=== PATIENT | female | born 1935 | race Caucasian/White ===

== ENCOUNTER 2016-12-13 02:42 | Inpatient (IN) | payer OTHER, BC ==
--- NOTE | 2016-12-13 02:52 | PDOC ---
History of Present Illness - General Chief Complaint: Pain, Acute Stated Complaint: MISSED A STEP INJURING HER RIGHT HIP AND THIGH Time Seen by Provider: 12/13/16 02:51 History Source: Patient Exam Limitations: No Limitations - History of Present Illness Initial Comments: 12/13/16 02:56 This is an elderly 81-year-old female who was going down 2 steps we supinated to stop following injuring her right hip and hitting her head. Patient did not pass out. Patient's complaining of pain to her right hip area. Patient was able to ambulate post fall. Patient was brought in by EMS. PAST MEDICAL HISTORY: no significant history PAST SURGICAL HISTORY: no significant history FAMILY HISTORY: no pertinant history SOCIAL HISTORY: Pt lives with family and is employed. MEDICATIONS: reviewed ALLERGIES: As per nursing notes Review of Systems General: No fevers or chills, no weakness, no weight loss HEENT: No change in vision. No sore throat,. No ear pain CardioVascular: No chest pain or shortness of breath Respiratory:No cough, or wheezing. Gastrointestinal: no nausea, vomitting, diarrhea or constipation, No rectal bleeding Genitourinary: No dysuria, hematuria, or frequency Musculoskeletal: Pain in right hip Neurologic: No headache, vertigo, dizziness or loss of consciousness Psychiatric: nor depression Skin: No rashes or easy bruising Endocrine: no increased thirst or abnormal weight change Allergic: no skin or latex allergy All other systems reviewed and normal Exam: General: Well-nourished well-developed individual, no acute distress HEENT: Throat: Normal, tonsils normal, no erythema or exudate Neck: Supple, no meningeal signs, no lymphadenopathy Eyes::Pupils equal reactive and round, extraocular motion intact Chest: Nontender to palpation Cardiac: S1-S2 normal, regular rate and rhythm, no murmurs rubs or gallops Respiratory: Lungs clear to auscultation bilateral Abdomen: Soft, nondistended, normal bowel sounds, nontender to palpation diffusely Extremities: Warm, dry, no cyanosis, clubbing, or edema, the right leg is externally rotated and shortened. Neurovascular distal is intact. There is tenderness on palpation over the right hip Skin: No rashes Neuro: Alert and oriented x3, nonfocal exam, grossly intact, normal gait Psych: Normal mood and affect 12/13/16 04:12 X-ray shows a fracture of the right femur through the hardware that is already there. Chest x-ray no acute pathology Assessment and plan: This is an 81-year-old female who comes in status post fall who has a fracture through her hardware that is already in her right femur. 12/13/16 04:14 Past History - Past Medical History Allergies/Adverse Reactions: Allergies Allergy/AdvReac Type Severity Reaction Status Date / Time No Known Allergies Allergy Verified 12/13/16 02:44 Home Medications: Ambulatory Orders Unobtainable [Unobtainable] 12/13/16 HTN: Yes - Immunization History Td Vaccination: Yes Immunization Up to Date: (UNSURE) - Psycho/Social/Smoking Cessation Hx Suicidal Ideation: No Smoking Status: Yes Smoking History: Former smoker Have you smoked in the past 12 months: No Number of Cigarettes Smoked Daily: 0 Hx Alcohol Use: No Drug/Substance Use Hx: No Substance Use Type: None ED Treatment Course - LABORATORY CBC & Chemistry Diagram: 12/13/16 03:00 12/13/16 03:00 *DC/Admit/Observation/Transfer Diagnosis at time of Disposition: Right femoral shaft fracture Qualifiers: Encounter type: initial encounter Fracture type: closed Fracture morphology: unspecified fracture morphology Qualified Code(s): S72.301A - Unspecified fracture of shaft of right femur, initial encounter for closed fracture - Discharge Dispostion Condition at time of disposition: Stable Admit: Yes - Referrals Referrals: Ankit Toth MD [Primary Care Provider] -
[2016-12-13] MEDS ORDERED: morphine CARPU-JECT 2 MG/1 ML DISP.SYRIN IVPUSH ONE ×2 (02:54→04:01)
[2016-12-13 02:58] VITALS: BMI 21.9
[2016-12-13] MEDS ORDERED: morphine CARPU-JECT 2 MG/1 ML DISP.SYRIN ONE ×2 (03:11→03:55)
[2016-12-13 03:52] LABS: BASOPHIL 0.5 % (0-2.0); EOSINOPHIL 1.3 % (0-4.5); MCH 35.4 pg (25.7-33.7); MCHC 33.7 g/dl (32.0-36.0); MEAN PLT VOLUME 7.6 fl (7.5-11.1); NEUTROPHILS 77.2 % (42.8-82.8); PLATELET COUNT 167 K/MM3 (134-434); RDW 13.4 % (11.6-15.6); WHITE BLOOD COUNT 6.9 K/mm3 (4.0-10.0)
[2016-12-13 04:00] LABS: INR 1.03 (0.82-1.09); PROTHROMBIN TIME (PATIENT) 11.3 SEC (9.98-11.88)
[2016-12-13 04:15] LABS: ALBUMIN 3.5 g/dl (3.4-5.0); ALK PHOS 108 U/L (45-117); ANION GAP 14 (8-16); BILIRUBIN,TOTAL 0.6 mg/dL (0.2-1.0); CALCIUM 9.2 mg/dL (8.5-10.1); CO2 26 mmol/L (21-32); CREATININE 0.9 mg/dL (0.55-1.02); GLUCOSE,RANDOM 97 mg/dL (74-106); SGOT/AST 59 U/L (15-37); SGPT/ALT 52 U/L (12-78); TOT PROT 6.5 g/dl (6.4-8.2)
[2016-12-13] MEDS: SODIUM CHLORIDE 1,000 ML IV SCH (05:00)
[2016-12-13 08:36] LABS: ACTIVATED PTT 24.6 SECONDS (24.0-38.9); INR 0.99 (0.82-1.09); PROTHROMBIN TIME (PATIENT) 11.1 SEC (10.2-13.0)
--- NOTE | 2016-12-13 10:02 | HP ---
CHIEF COMPLAINT: s/p fall, right hip pain PCP: Dr Toth HISTORY OF PRESENT ILLNESS: Patient is a 81 y/o female with a past medical history of hemocromotosis. She reports ambulating at home this morning, missed a step and fell upon her right hip and striking her head. Patient denies any loss of consciousness, She is able to recall the full incident in detail. She reports ongoing pain to the right anterior thigh and denies any paresthesia to the extremity. ER course was notable for: (1) xray of right pelvis acute communted fracture of the right greater trochanter, fracture lucency is extending horizontally through the lateral subtrochantic region up the hardware (2) ct of head, no acute pathology (3)ekg nsr normal axis Recent Travel: none PAST MEDICAL HISTORY: hemocromotosis PAST SURGICAL HISTORY: bilateral hip replacements Social History: retired, resides at home with her Smoking:dayliner smoker Alcohol: none Drugs: none Family History: non contributory to this admission Allergies No Known Allergies Allergy (Verified 12/13/16 02:44) HOME MEDICATIONS: Home Medications Medication Instructions Recorded Unobtainable [Unobtainable] 12/13/16 REVIEW OF SYSTEMS CONSTITUTIONAL: Absent: fever, chills, diaphoresis, generalized weakness, malaise, loss of appetite, weight change HEENT: Absent: rhinorrhea, nasal congestion, throat pain, throat swelling, difficulty swallowing, mouth swelling, ear pain, eye pain, visual changes CARDIOVASCULAR: Absent: chest pain, syncope, palpitations, irregular heart rate, lightheadedness , peripheral edema RESPIRATORY: Absent: cough, shortness of breath, dyspnea with exertion, orthopnea, wheezing, stridor, hemoptysis GASTROINTESTINAL: Absent: abdominal pain, abdominal distension, nausea, vomiting, diarrhea, constipation, melena, hematochezia GENITOURINARY: Absent: dysuria, frequency, urgency, hesitancy, hematuria, flank pain, genital pain MUSCULOSKELETAL: Present: right hip pain Absent: myalgia, arthralgia, joint swelling, back pain, neck pain SKIN: Absent: rash, itching, pallor HEMATOLOGIC/IMMUNOLOGIC: Absent: easy bleeding, easy bruising, lymphadenopathy, frequent infections ENDOCRINE: Absent: unexplained weight gain, unexplained weight loss, heat intolerance, cold intolerance NEUROLOGIC: Absent: headache, focal weakness or paresthesias, dizziness, unsteady gait, seizure, mental status changes, bladder or bowel incontinence PSYCHIATRIC: Absent: anxiety, depression, suicidal or homicidal ideation, hallucinations. PHYSICAL EXAMINATION Vital Signs - 24 hr 12/13/16 06:56 O2 Sat by Pulse 96 Oximetry (%) GENERAL: Awake, alert, and fully oriented, in no acute distress. HEAD: Normal with no signs of trauma. EYES: Pupils equal, round and reactive to light, extraocular movements intact, sclera anicteric, conjunctiva clear. No lid lag. EARS, NOSE, THROAT: Ears normal, nares patent, oropharynx clear without exudates. Moist mucous membranes. NECK: Normal range of motion, supple without lymphadenopathy, JVD, or masses. LUNGS: Breath sounds equal, clear to auscultation bilaterally. No wheezes, and no crackles. No accessory muscle use. HEART: Regular rate and rhythm, normal S1 and S2 without murmur, rub or gallop. ABDOMEN: Soft, nontender, not distended, normoactive bowel sounds, no guarding, no rebound, no masses. No hepatomegaly or splenomegaly. MUSCULOSKELETAL: Normal range of motion at all joints. No bony deformities or tenderness. No CVA tenderness. UPPER EXTREMITIES: 2+ pulses, warm, well-perfused. No cyanosis. No clubbing. No peripheral edema. RIGHT LOWER EXTREMITY: internally rotated and shortened, less than 3 second capillary refill, +3 pedal pulse LOWER EXTREMITIES: 2+ pulses, warm, well-perfused. No calf tenderness. No peripheral edema. NEUROLOGICAL: Cranial nerves II-XII intact. Normal speech. Normal gait. PSYCHIATRIC: Cooperative. Good eye contact. Appropriate mood and affect. SKIN: Warm, dry, normal turgor, no rashes or lesions noted, normal capillary refill. Laboratory Results - last 24 hr 12/13/16 07:30 INR 0.99 PTT (Actin FS) 24.6 L ASSESSMENT/PLAN: 1) ortho: s/p fall, right greater trochanter fracture - xray reviewed, case discussed with Esteban MORALES ([facility]) will evaluate patient today - prn pain medication - incentive spirometer 2) heme:hemocromotosis - hgb/hct stable - strict monitoring f/e/n - regular diet - replete electrolytes prn ppx - zantac - lovenox - scd/janey dispo: requires inpatient care Visit type - Emergency Visit Emergency Visit: Yes ED Registration Date: 12/13/16 Care time: The patient presented to the Emergency Department on the above date and was hospitalized for further evaluation of their emergent condition. - New Patient This patient is new to me today: Yes Date on this admission: 12/13/16 - Critical Care Critical Care patient: No
[2016-12-13] MEDS ORDERED: ACETAMINOPHEN 325 MG TABLET (FP) PO PRN (10:35)
[2016-12-13] MEDS: ENOXAPARIN NA (PORCINE) 40 MG/0.4 ML DISP.SYRIN SQ SCH (10:44)
[2016-12-13] MEDS: RANITIDINE HCL 150 MG TABLET (FP) PO SCH (10:44)
[2016-12-13] MEDS: morphine CARPU-JECT 2 MG/1 ML DISP.SYRIN IVPUSH PRN ×3 (10:45→21:27)
--- NOTE | 2016-12-13 14:14 | CONSULT ---
Consult - History of Present Illness Chief Complaint: Right hip and leg pain History of Present Illness: 81-year-old female was walking with the lights off when she missed a step and fell and injured her right side. She immediately had pain in the hip as well as pain in the thigh and was transported to the emergency room where she had x- rays and was diagnosed with a fracture in the hip. She does have some pain in the hip but today most of her pain is in the distal aspect of the thigh. The pain is worse with movement and better with rest. She denies any numbness or tingling in the extremity - History Source History Provided By: Patient, Medical Record Limitations to Obtaining History: No Limitations - Alcohol/Substance Use Hx Alcohol Use: No - Smoking History Smoking history: Former smoker Have you smoked in the past 12 months: No Aproximately how many cigarettes per day: 0 Home Medications - Allergies Allergies/Adverse Reactions: Allergies Allergy/AdvReac Type Severity Reaction Status Date / Time No Known Allergies Allergy Verified 12/13/16 02:44 - Home Medications Home Medications: Ambulatory Orders Unobtainable [Unobtainable] 12/13/16 Review of Systems - Review of Systems Constitutional: reports: No Symptoms Eyes: reports: No Symptoms HENT: reports: No Symptoms Neck: reports: No Symptoms Cardiovascular: reports: No Symptoms Respiratory: reports: No Symptoms Gastrointestinal: reports: No Symptoms Genitourinary: reports: No Symptoms Breasts: reports: No Symptoms Reported Musculoskeletal: reports: Extremity Pain Integumentary: reports: No Symptoms Neurological: reports: No Symptoms Endocrine: reports: No Symptoms Hematology/Lymphatic: reports: No Symptoms Psychiatric: reports: No Symptoms Physical Exam Vital Signs: Vital Signs Temperature 98.1 F 12/13/16 10:40 Pulse Rate 100 H 12/13/16 10:40 Respiratory Rate 18 12/13/16 10:40 Blood Pressure 115/68 12/13/16 10:40 O2 Sat by Pulse Oximetry (%) 96 12/13/16 06:56 Constitutional: Yes: Well Nourished, No Distress, Calm HENT: Yes: Atraumatic, Normocephalic Musculoskeletal: Yes: Other (Right hip: No open wounds. There is a healed surgical incision scar along the lateral aspect of the hip consistent with prior ORIF. There is tenderness of the greater trochanter. No other areas of tenderness. Smooth motion of the hip. Right lower extremity: There is tenderness over the distal aspect of the femur. Mild edema of the extremity. Pain with motion of the extremity. Neurovascularly intact distally) Imaging - Results X-ray: Report Reviewed, Image Reviewed (X-rays reviewed of the right hip show a fracture of the greater Trochanter which is minimally displaced. There is no intertrochanteric fracture) Assessment/Plan #1 right greater trochanter fracture -Will proceed non-operatively -Pain control -PT WBAT with walker -DVT Prophaxis -Will reassess tomorrow, may need rehab if cannot walk Care of this patient was performed under the direct supervision of Dr. Edwar Saavedra.
--- NOTE | 2016-12-13 21:03 | EKG ---
Test Reason : Blood Pressure : / mmHG Vent. Rate : 099 BPM Atrial Rate : 099 BPM P-R Int : 106 ms QRS Dur : 062 ms QT Int : 340 ms P-R-T Axes : 040 026 033 degrees QTc Int : 436 ms POOR DATA QUALITY, INTERPRETATION MAY BE ADVERSELY AFFECTED SINUS RHYTHM VENT. RATE ATRIAL ABNORMALITY. NONSPECIFIC ST-T ABNORMALITIES. BORDERLINE ECG NO PREVIOUS ECGS AVAILABLE CLINICAL CORRELATION IS RECOMMENDED Confirmed by MARY ELLEN CAMERON MD ([id number]) on 12/13/2016 9:02:33 PM Referred By: MD CATHERINE Confirmed By:MARY ELLEN CAMERON MD
[2016-12-13 22:22] LABS: URINE COLOR YELLOW
[2016-12-13 22:23] LABS: URINE APPEARANCE SL CLOUDY; URINE BILIRUBIN NEGATIVE (NEGATIVE); URINE BLOOD NEGATIVE (NEGATIVE); URINE GLUCOSE (UA) NEGATIVE (NEGATIVE); URINE KETONE 1+ (NEGATIVE); URINE LEUK ESTERASE 1+ (NEGATIVE); URINE NITRITE POSITIVE (NEGATIVE); URINE PROTEIN NEGATIVE (NEGATIVE); URINE UROBILINOGEN 0.2 (0.2-1.0)
[2016-12-13 22:24] LABS: URINE BACTERIA 3+ /hpf (NEGATIVE); URINE RBC NONE SEEN /hpf (0-3)
[2016-12-14] MEDS: morphine CARPU-JECT 2 MG/1 ML DISP.SYRIN IVPUSH PRN ×2 (05:40→20:13)
[2016-12-14 08:03] LABS: ANION GAP 7 (8-16); CALCIUM 8.8 mg/dl (8.4-10.2); CO2 27 mmol/L (22-28); CREATININE 0.8 mg/dl (0.6-1.3); GLUCOSE,RANDOM 137 mg/dl (74-106); MAGNESIUM 1.6 mg/dL (1.8-2.4); PHOSPHOROUS 2.5 mg/dl (2.5-4.6)
[2016-12-14 08:38] LABS: BASOPHIL 0.5 % (0-2.0); EOSINOPHIL 1.1 % (0-4.5); MCH 35.2 pg (25.7-33.7); MCHC 33.9 g/dl (32.0-36.0); MEAN CELL VOLUME 103.8 fl (80-96); MEAN PLT VOLUME 7.4 fl (7.5-11.1); NEUTROPHILS 69.9 % (42.8-82.8); PLATELET COUNT 144 K/MM3 (134-434); RDW 12.8 % (11.6-15.6); WHITE BLOOD COUNT 5.9 K/mm3 (4.0-10.8)
--- NOTE | 2016-12-14 09:18 | PN ---
Physical Exam: SUBJECTIVE: Patient seen and examined, reports pain to the right lower extremity upon movement, denies any chest pain or shortness of breath. OBJECTIVE:Patient is a 81 y/o female with a past medical history of hemocromotosis, patient was admitted from the emergency department s/p fall and right great throcantic fracture. Vital Signs Period Temp Pulse Resp BP Sys/[place] Pulse Ox Last 24 Hr 98.1 F-99.1 F 84-110 16-19 101-115/53-73 93-96 GENERAL: The patient is awake, alert, and fully oriented, in no acute distress. HEAD: Normal with no signs of trauma. EYES: PERRL, extraocular movements intact, sclera anicteric, conjunctiva clear. No ptosis. ENT: Ears normal, nares patent, oropharynx clear without exudates, moist mucous membranes. NECK: Trachea midline, full range of motion, supple. LUNGS: Breath sounds equal, clear to auscultation bilaterally, no wheezes, no crackles, no accessory muscle use. HEART: Regular rate and rhythm, S1, S2 without murmur, rub or gallop. ABDOMEN: Soft, nontender, nondistended, normoactive bowel sounds, no guarding, no rebound, no hepatosplenomegaly, no masses. : monroy clear yellow urine EXTREMITIES: 2+ pulses, warm, well-perfused, no edema. RIGHT LOWER EXTREMITY: point tenderness to the right anterior thigh, no erythema noted, extremity shortened. NEUROLOGICAL: Cranial nerves II through XII grossly intact. Normal speech, gait not observed. PSYCH: Normal mood, normal affect. SKIN: Warm, dry, normal turgor, no rashes or lesions noted Laboratory Results - last 24 hr 12/13/16 12/14/16 12/14/16 15:50 07:00 07:00 WBC 5.9 RBC 2.62 L Hgb 9.3 L Hct 27.2 L MCV 103.8 H MCH 35.2 H MCHC 33.9 RDW 12.8 Plt Count 144 MPV 7.4 L Neutrophils % 69.9 Lymphocytes % 18.1 Monocytes % 10.4 H Eosinophils % 1.1 Basophils % 0.5 Sodium 136 Potassium 3.9 Chloride 102 Carbon Dioxide 27 Anion Gap 7 L BUN 23 H Creatinine 0.8 Random Glucose 137 H Calcium 8.8 Phosphorus 2.5 Magnesium 1.6 L Urine Color Yellow Urine Appearance Sl cloudy Urine pH 6.0 Ur Specific [place] 1.020 Urine Protein Negative Urine Glucose (UA) Negative Urine Ketones 1+ H Urine Blood Negative Urine Nitrite Positive Urine Bilirubin Negative Urine Urobilinogen 0.2 Ur Leukocyte Esterase 1+ H Urine RBC None seen Urine WBC 10-20 Ur Epithelial Cells 2+ Urine Bacteria 3+ Active Medications Generic Name Dose Route Start Last Admin Trade Name Freq PRN Reason Stop Dose Admin Acetaminophen 650 mg 12/13/16 10:35 12/13/16 20:34 Tylenol - PO 650 mg Q4H PRN Administration FEVER OR PAIN Ceftriaxone Sodium 1 gm 12/14/16 10:00 Rocephin 1gm Ivpb (Pre-Docked) IVPB DAILY [facility] Protocol Enoxaparin Sodium 40 mg 12/13/16 10:45 12/13/16 10:44 Lovenox - SQ 40 mg DAILY ELVIRA Administration Sodium Chloride 1,000 mls @ 42 mls/hr 12/13/16 04:45 12/13/16 05:00 Normal Saline - IV 42 mls/hr ASDIR ELVIRA Administration Morphine Sulfate 2 mg 12/13/16 04:32 12/14/16 05:40 Morphine Injection - IVPUSH 2 mg Q6H PRN Administration PAIN LEVEL 6-10 Ranitidine HCl 150 mg 12/13/16 10:45 12/13/16 10:44 Zantac - PO 150 mg DAILY ELVIRA Administration IMAGING xray of right pelvis acute comminuted fracture of the right greater trochanter , fracture lucency is extending horizontally through the lateral subtrochantic region up the hardware ct of head, no acute pathology ASSESSMENT/PLAN: 1) ortho: s/p fall, right greater trochanter fracture - continue toe touch weight bearing to the right lower extremity as per ortho - prn pain medication -ortho (Maggie) consulted and followed - incentive spirometer 2) heme:hemocromotosis - hgb/hct stable - strict monitoring 3) gu urinary tract infection - + nitrates noted in urnine, pending urine culture - start rocephin until urine culture final results are obtained to narrow down antibiotics f/e/n - regular diet - replete electrolytes prn ppx - zantac - lovenox - scd/janey dispo: requires inpatient care Visit type - Emergency Visit Emergency Visit: Yes ED Registration Date: 12/13/16 Care time: The patient presented to the Emergency Department on the above date and was hospitalized for further evaluation of their emergent condition. - New Patient This patient is new to me today: Yes Date on this admission: 12/14/16 - Critical Care Critical Care patient: No - Discharge Referral Referred to [facility] No
[2016-12-14] MEDS: cefTRIAXone 1 GM/50 ML BAG (PRE-DOCKED) IVPB SCH (09:34)
[2016-12-14] MEDS: RANITIDINE HCL 150 MG TABLET (FP) PO SCH (09:34)
[2016-12-14] MEDS: ENOXAPARIN NA (PORCINE) 40 MG/0.4 ML DISP.SYRIN SQ SCH (09:34)
[2016-12-14] MEDS: SODIUM CHLORIDE 1,000 ML IV SCH (09:34)
[2016-12-14] MEDS ORDERED: KETOROLAC TROMETHAMINE 30 MG/1 ML VIAL IVPUSH ONE (11:00)
[2016-12-14] MEDS: ACETAMINOPHEN WITH CODEINE 300MG/30MG TABLET PO PRN ×2 (17:39→23:16)
[2016-12-15] MEDS: cefTRIAXone 1 GM/50 ML BAG (PRE-DOCKED) IVPB SCH (09:17)
[2016-12-15] MEDS: RANITIDINE HCL 150 MG TABLET (FP) PO SCH (09:17)
[2016-12-15] MEDS: ENOXAPARIN NA (PORCINE) 40 MG/0.4 ML DISP.SYRIN SQ SCH (09:17)
--- NOTE | 2016-12-15 09:30 | PN ---
Physical Exam: SUBJECTIVE: Patient seen and examined, reports pain to the right lower extremity upon movement. OBJECTIVE:Patient is a 81 y/o female with a past medical history of hemocromotosis, patient was admitted from the emergency department s/p fall and right great throcantic fracture. Vital Signs Period Temp Pulse Resp BP Sys/[place]land Pulse Ox Last 24 Hr 97.9 F-99.0 F 88-109 16-18 101-122/45-84 95-97 GENERAL: The patient is awake, alert, and fully oriented, in no acute distress. HEAD: Normal with no signs of trauma. EYES: PERRL, extraocular movements intact, sclera anicteric, conjunctiva clear. No ptosis. ENT: Ears normal, nares patent, oropharynx clear without exudates, moist mucous membranes. NECK: Trachea midline, full range of motion, supple. LUNGS: Breath sounds equal, clear to auscultation bilaterally, no wheezes, no crackles, no accessory muscle use. HEART: Regular rate and rhythm, S1, S2 without murmur, rub or gallop. ABDOMEN: Soft, nontender, nondistended, normoactive bowel sounds, no guarding, no rebound, no hepatosplenomegaly, no masses. : monroy clear yellow urine EXTREMITIES: 2+ pulses, warm, well-perfused, no edema. RIGHT LOWER EXTREMITY: point tenderness to the right anterior thigh, no erythema noted, extremity shortened. NEUROLOGICAL: Cranial nerves II through XII grossly intact. Normal speech, gait not observed. PSYCH: Normal mood, normal affect. SKIN: Warm, dry, normal turgor, no rashes or lesions noted Active Medications Generic Name Dose Route Start Last Admin Trade Name Freq PRN Reason Stop Dose Admin Acetaminophen 650 mg 12/13/16 10:35 12/13/16 20:34 Tylenol - PO 650 mg Q4H PRN Administration FEVER OR PAIN Acetaminophen/Codeine Phosphate 1 tab 12/14/16 10:47 12/14/16 23:16 Tylenol # 3 - PO 1 tab Q6H PRN Administration FEVER OR PAIN Ceftriaxone Sodium 1 gm 12/14/16 10:00 12/15/16 09:17 Rocephin 1gm Ivpb (Pre-Docked) IVPB 1 gm DAILY ELVIRA Administration Protocol Enoxaparin Sodium 40 mg 12/13/16 10:45 12/15/16 09:17 Lovenox - SQ 40 mg DAILY ELVIRA Administration Morphine Sulfate 2 mg 12/13/16 04:32 12/14/16 20:13 Morphine Injection - IVPUSH 2 mg Q6H PRN Administration PAIN LEVEL 6-10 Ranitidine HCl 150 mg 12/13/16 10:45 12/15/16 09:17 Zantac - PO 150 mg DAILY ELVIRA Administration Microbiology 12/13/16 15:50 Urine - Urine Clean Catch Urine Culture - Preliminary Lactose Fermenting Neg Bacilli IMAGING xray of right pelvis acute comminuted fracture of the right greater trochanter , fracture lucency is extending horizontally through the lateral subtrochantic region up the hardware ct of head, no acute pathology ASSESSMENT/PLAN: 1) ortho: s/p fall, right greater trochanter fracture - continue toe touch weight bearing to the right lower extremity as per ortho - prn pain medication - pt eval, restorative short term rehab recommended -ortho (Maggie) consulted and followed - incentive spirometer 2) heme:hemocromotosis - hgb/hct stable - strict monitoring 3) gu urinary tract infection - + urine culture, prelim + lactose fermenting neg bacilli, continue rocephin until sensitivity is obtained to narrow down abx - start rocephin until urine culture final results are obtained to narrow down antibiotics f/e/n - regular diet - replete electrolytes prn ppx - zantac - lovenox - scd/janey dispo: requires inpatient care, will require SNF for short term rehab, case managment consulted Visit type - Emergency Visit Emergency Visit: Yes ED Registration Date: 12/13/16 Care time: The patient presented to the Emergency Department on the above date and was hospitalized for further evaluation of their emergent condition. - New Patient This patient is new to me today: No - Critical Care Critical Care patient: No - Discharge Referral Referred to [facility] No
[2016-12-15] MEDS ORDERED: KETOROLAC TROMETHAMINE 30 MG/1 ML VIAL IVPUSH ONE (11:46)
--- NOTE | 2016-12-15 12:20 | PN ---
Progress Note, Physician History of Present Illness: She is sitting in the chair today. Did not walk yesterday. Therapist is coming later today to try again. having pain in the hip - Current Medication List Current Medications: Active Medications Acetaminophen (Tylenol -) 650 mg PO Q4H PRN PRN Reason: FEVER OR PAIN Last Admin: 12/13/16 20:34 Dose: 650 mg Acetaminophen/Codeine Phosphate (Tylenol # 3 -) 1 tab PO Q6H PRN PRN Reason: FEVER OR PAIN Last Admin: 12/14/16 23:16 Dose: 1 tab Ceftriaxone Sodium (Rocephin 1gm Ivpb (Pre-Docked)) 1 gm IVPB DAILY ELVIRA PRN Reason: Protocol Last Admin: 12/15/16 09:17 Dose: 1 gm Enoxaparin Sodium (Lovenox -) 40 mg SQ DAILY [facility] Last Admin: 12/15/16 09:17 Dose: 40 mg Morphine Sulfate (Morphine Injection -) 2 mg IVPUSH Q6H PRN PRN Reason: PAIN LEVEL 6-10 Last Admin: 12/14/16 20:13 Dose: 2 mg Ranitidine HCl (Zantac -) 150 mg PO DAILY [facility] Last Admin: 12/15/16 09:17 Dose: 150 mg - Objective Vital Signs: Vital Signs Temperature 99.0 F 12/15/16 10:00 Pulse Rate 88 12/15/16 10:00 Respiratory Rate 18 12/15/16 10:00 Blood Pressure 110/58 12/15/16 10:00 O2 Sat by Pulse Oximetry (%) 95 12/15/16 06:00 Constitutional: Yes: Well Nourished, No Distress, Calm HENT: Yes: Atraumatic, Normocephalic Extremities: Yes: Other (Right hip: Tenderness over the greater trochanter. Pain with motion of the hip. Smooth motion of the hip. RLE is not externally rotated. NVID.) Labs: CBC, BMP 12/14/16 07:00 12/14/16 07:00 INR, PTT INR 0.99 (0.82-1.09) 12/13/16 07:30 Assessment/Plan #1 Right hip greater trochanter fracture -PT WBAT -Pain control -DVT prophaxis -She is likely heading to short term rehab. X-ray in 1-2 weeks and follow up with Dr. Saavedra/Sarthak at that time.
[2016-12-15 18:01] LABS: BASOPHIL 0.2 % (0-2.0); EOSINOPHIL 0.7 % (0-4.5); MCH 35.3 pg (25.7-33.7); MCHC 35.3 g/dl (32.0-36.0); MEAN CELL VOLUME 99.9 fl (80-96); MEAN PLT VOLUME 7.3 fl (7.5-11.1); NEUTROPHILS 79.6 % (42.8-82.8); PLATELET COUNT 149 K/MM3 (134-434); WHITE BLOOD COUNT 6.6 K/mm3 (4.0-10.8)
[2016-12-15 18:03] LABS: ANION GAP 7 (8-16); CALCIUM 8.5 mg/dl (8.4-10.2); CO2 27 mmol/L (22-28); CREATININE 0.9 mg/dl (0.6-1.3); GLUCOSE,RANDOM 159 mg/dl (74-106); MAGNESIUM 1.6 mg/dL (1.8-2.4); PHOSPHOROUS 2.3 mg/dl (2.5-4.6)
[2016-12-15] MEDS: ACETAMINOPHEN WITH CODEINE 300MG/30MG TABLET PO PRN ×2 (18:16→23:30)
[2016-12-16 05:58] VITALS: BP 112/58; PULSE 96; TEMP 98
[2016-12-16] MEDS ORDERED: MAGNESIUM SULFATE 2 GM in SODIUM CHLORIDE 100 ML IVPB ONE (06:50)
[2016-12-16] MEDS: ACETAMINOPHEN WITH CODEINE 300MG/30MG TABLET PO PRN (07:31)
[2016-12-16] MEDS ORDERED: MAGNESIUM SULF 50% (8.12 MEQ/2 ML-1 GM VIAL) ONE (07:34)
--- NOTE | 2016-12-16 08:44 | DS ---
Physical Exam: SUBJECTIVE: Patient seen and examined, reports feeling well, denies any chest pain or shortness of breath. reports pain to the right lower extremity upon movement. OBJECTIVE:Patient is a 81 y/o female with a past medical history of hemocromotosis. She reports ambulating at home this morning, missed a step and fell upon her right hip and striking her head. Patient denies any loss of consciousness, She is able to recall the full incident in detail. She reports ongoing pain to the right anterior thigh and denies any paresthesia to the extremity. ER course was notable for: (1) xray of right pelvis acute communted fracture of the right greater trochanter, fracture lucency is extending horizontally through the lateral subtrochantic region up the hardware (2) ct of head, no acute pathology (3)ekg nsr normal axis Vital Signs Period Temp Pulse Resp BP Sys/[place] Pulse Ox Last 24 Hr 97.9 F-99.0 F 88-106 17-18 98-112/57-60 96-98 PHYSICAL EXAM GENERAL: The patient is awake, alert, and fully oriented, in no acute distress. HEAD: Normal with no signs of trauma. EYES: PERRL, extraocular movements intact, sclera anicteric, conjunctiva clear. No ptosis. ENT: Ears normal, nares patent, oropharynx clear without exudates, moist mucous membranes. NECK: Trachea midline, full range of motion, supple. LUNGS: Breath sounds equal, clear to auscultation bilaterally, no wheezes, no crackles, no accessory muscle use. HEART: Regular rate and rhythm, S1, S2 without murmur, rub or gallop. ABDOMEN: Soft, nontender, nondistended, normoactive bowel sounds, no guarding, no rebound, no hepatosplenomegaly, no masses. : [place] clear yellow urine EXTREMITIES: 2+ pulses, warm, well-perfused, no edema. RIGHT LOWER EXTREMITY: point tenderness to the right anterior thigh, no erythema noted, extremity shortened. NEUROLOGICAL: Cranial nerves II through XII grossly intact. Normal speech, gait not observed. PSYCH: Normal mood, normal affect. SKIN: Warm, dry, normal turgor, no rashes or lesions noted LABS Laboratory Results - last 24 hr CBC WBC 6.6 K/mm3 (4.0-10.8) 12/15/16 17:05 RBC 2.52 M/mm3 (3.60-5.2) L 12/15/16 17:05 Hgb 8.9 GM/dl (10.7-15.3) L 12/15/16 17:05 Hct 25.1 % (32.4-45.2) L 12/15/16 17:05 MCV 99.9 fl (80-96) H 12/15/16 17:05 MCH 35.3 pg (25.7-33.7) H 12/15/16 17:05 MCHC 35.3 g/dl (32.0-36.0) 12/15/16 17:05 RDW 13.0 % (11.6-15.6) 12/15/16 17:05 Plt Count 149 K/MM3 (134-434) 12/15/16 17:05 MPV 7.3 fl (7.5-11.1) L 12/15/16 17:05 Neutrophils % 79.6 % (42.8-82.8) 12/15/16 17:05 Lymphocytes % 11.6 % (8-40) D 12/15/16 17:05 Monocytes % 7.9 % (3.8-10.2) 12/15/16 17:05 Eosinophils % 0.7 % (0-4.5) 12/15/16 17:05 Basophils % 0.2 % (0-2.0) 12/15/16 17:05 CMP Sodium 131 mmol/L (136-145) L 12/15/16 17:05 Potassium 3.5 mmol/L (3.5-5.1) 12/15/16 17:05 Chloride 97 mmol/L (98-107) L 12/15/16 17:05 Carbon Dioxide 27 mmol/L (22-28) 12/15/16 17:05 Anion Gap 7 (8-16) L 12/15/16 17:05 BUN 20 mg/dl (7-18) H 12/15/16 17:05 Creatinine 0.9 mg/dl (0.6-1.3) 12/15/16 17:05 Creat Clearance w eGFR > 60 (>60) 12/13/16 03:00 Random Glucose 159 mg/dl (74-106) H 12/15/16 17:05 Calcium 8.5 mg/dl (8.4-10.2) 12/15/16 17:05 Phosphorus 2.3 mg/dl (2.5-4.6) L 12/15/16 17:05 Magnesium 1.6 mg/dL (1.8-2.4) L 12/15/16 17:05 Total Bilirubin 0.6 mg/dL (0.2-1.0) 12/13/16 03:00 AST 59 U/L (15-37) H 12/13/16 03:00 ALT 52 U/L (12-78) 12/13/16 03:00 Alkaline Phosphatase 108 U/L (45-117) 12/13/16 03:00 Total Protein 6.5 g/dl (6.4-8.2) 12/13/16 03:00 Albumin 3.5 g/dl (3.4-5.0) 12/13/16 03:00 Microbiology 12/13/16 15:50 Urine - Urine Clean Catch Urine Culture - Final Escherichia Coli IMAGING - xray of right pelvis acute comminuted fracture of the right greater trochanter , fracture lucency is extending horizontally through the lateral subtrochantic region up the hardware - ct of head, no acute pathology HOSPITAL COURSE: * s/p fall, right greater trochanter fracture, patient was evaluated by the orthopedist, (Maggie) as per patient's request. advised nonoperative treatment , lengthy discussion with patient and family and patient and family agree to non -operative approach at this time. toe touch weight bearing to the right lower extremity as per orthopedist. prn pain medication, patient evaluated by [facility] short term rehab recommended. * pmh of hemocromotosis, hgb/hct stable * acute urinary tract infection, + urine culture, +e. coli, started rocephin and transitioned to ceftin. PLAN - d/c to [facility] short term rehab [facility] - continue ceftin Date of Admission:12/13/16 Date of Discharge: 12/16/16 Minutes to complete discharge: 45 Discharge Summary Reason For Visit: MISSED A STEP INJURING HER RIGHT HIP AND THIGH Current Active Problems Right femoral shaft fracture (Acute) Condition: Improved - Instructions Diet, Activity, Other Instructions: resume regular diet continue toe touch weight bearing to the right lower extremity as tolerated continue ceftin daily for the next 7 days please follow up with the orthopedist within 7 days after discharge if any new or persistent symptoms develop please return to the emergency department Referrals: Ankit Toth MD [Primary Care Provider] - Disposition: NURSING HOME FACILITY - Home Medications Comprehensive Discharge Medication List: Ambulatory Orders Unobtainable [Unobtainable] 12/13/16 This patient is new to me today: No Emergency Visit: Yes ED Registration Date: 12/13/16 Care time: The patient presented to the Emergency Department on the above date and was hospitalized for further evaluation of their emergent condition. Critical Care patient: No - Discharge Referral Referred to [facility] No
[2016-12-16] MEDS: RANITIDINE HCL 150 MG TABLET (FP) PO SCH (09:52)
[2016-12-16] MEDS: cefTRIAXone 1 GM/50 ML BAG (PRE-DOCKED) IVPB SCH (09:52)
[2016-12-16] MEDS: ENOXAPARIN NA (PORCINE) 40 MG/0.4 ML DISP.SYRIN SQ SCH (09:52)
[2016-12-16] MEDS ORDERED: LACTOBACILLUS ACIDOPHILUS 1 EACH TAB (FP) PO SCH (10:00)
== END 2016-12-16 11:15 | DRG 536 ==
LOC: FER 02:42 → FM/S 04:27
PROVIDERS: ADMIT Internal Medicine; ATTEND Nurse Practitioner Family
DX: S72.111A Displaced fracture of greater trochanter of right femur, initial encounter for closed fracture (principal); N39.0 Urinary tract infection, site not specified; W19.XXXA Unspecified fall, initial encounter; Y93.9 Activity, unspecified; Y92.89 Other specified places as the place of occurrence of the external cause; Y99.9 Unspecified external cause status; Z96.643 Presence of artificial hip joint, bilateral
CPT/HCPCS: 36415; 70450-TC; 71010-TC; 73523-TC; 73552-TC-RT; 73562-TC-RT; 80048; 80053; 81003; 81015; 83735; 84100; 85025; 85610; 85730; 86850; 86900; 86901; 87086; 87186; 93005; 97116-GP; 97162-GP; 99283-25